=== PATIENT | male | born 1955 | race Caucasian/White ===

== ENCOUNTER 2017-10-29 09:27 | Observation (INO) ==
--- NOTE | 2017-10-29 11:25 | ECG ---
Date Performed: 10/29/2017 Time Performed: 09:44:32 PTAGE: 62 years EKG: Sinus rhythm POSSIBLE LEFT ATRIAL ENLARGEMENT INCOMPLETE RIGHT BUNDLE BRANCH BLOCK SEPTAL MYOCARDIAL INFARCTION A BNORMAL ECG NO PREVIOUS TRACING DOCTOR: Mario Alberto Chan Interpretating Date/Time 10/29/2017 11:24:05
--- NOTE | 2017-10-29 11:57 | ED ---
HPI General Chief Complaint: Chest Pain Stated Complaint: Chest Pain Time Seen by Provider: 10/29/17 11:46 History of Present Illness HPI narrative: Patient comes emergency department complaining of intermittent left-sided chest pain ongoing for 3 days. Patient states that he walks approximately 4 miles a day and does not have chest pain with walking, but seems to happen more at rest. Describes pain as feeling like someone kicking him just briefly and then goes away. Denies radiation of the pain. Patient states pain improves with drinking a couple of beers. Patient reports history of high blood pressure but has not been on medication for about a year and a half secondary to no insurance. Patient states he smokes approximately 8 cigarettes per day and drinks 8 beers per day. Denies ever having a stress test or cardiac cath. Denies any headaches, dizziness, change in vision, shortness of breath, abdominal pain, nausea, vomiting, loss change in bowel bladder, numbness or tingling anywhere, or weakness. Complete Quality Measures for STEMI Alert Patients Related Data Home Medications Medication Instructions Recorded Confirmed No Known Home Medications 10/29/17 10/29/17 Allergies Allergy/AdvReac Type Severity Reaction Status Date / Time amoxicillin [From Augmentin] Allergy Bleeding Verified 10/29/17 09:39 clavulanic acid Allergy Bleeding Verified 10/29/17 09:39 [From Augmentin] Review of Systems Except as stated in HPI: all other systems reviewed are negative PMFSH Medical History Medical History Hypertension (Acute) Surgical History Surgical History No history of previous surgery (Acute) Social History Social History Substance History: Active Abuse Second Hand Smoke Exposure: Yes Smoking Status: Current every day smoker Tobacco Type: Cigarettes How Often Do You Have a Drink Containing Alcohol: 4 or more times a week Recent Travel in [place] within the Last 8 Weeks: No Recent Out of Country Travel within the Last 8 Weeks: No Substance Abuse Detail Alcohol: Substance Use Status: Active Route Used Substance Abuse: By Mouth Substance Frequency: 8 beers daily Marijuana: Substance Use Status: Active Substance Frequency: every other day Reason for Use: Calm Down Immunization History Tetanus Immunization: >5 Years Hx Influenza Vaccine This Season: No Exam Narrative Exam Narrative: GENERAL: Well-developed, overly nourished, in no acute distress , and non-ill appearing. SKIN: Focused skin assessment warm and dry. HEAD: Atraumatic. Normocephalic. EYES: Pupils equal and round. EOMI. No scleral icterus. No injection or drainage. ENT: No nasal bleeding or discharge. Mucous membranes pink and moist. NECK: Trachea midline. No JVD. Supple. No nuclear rigidity. CARDIOVASCULAR: Regular rate and rhythm. No murmur appreciated. RESPIRATORY: No accessory muscle use. No respiratory distress. Clear to auscultation. Breath sounds equal bilaterally. MUSCULOSKELETAL: No obvious deformities. No clubbing. No cyanosis. No edema. Full range of motion. NEUROLOGICAL: Awake and alert. No obvious cranial nerve deficits. Motor grossly within normal limits. Normal speech. PSYCHIATRIC: Appropriate mood and affect; insight and judgment normal. Course Initial Documented Vital Signs Temperature 97.8 F 10/29/17 09:36 Pulse Rate 82 10/29/17 09:36 Respiratory Rate 16 10/29/17 09:36 Blood Pressure 206/100 H 10/29/17 09:36 Pulse Oximetry 98 10/29/17 09:36 Last Documented Vital Signs Temperature 97.8 F 10/29/17 09:36 Pulse Rate 78 10/29/17 14:42 Respiratory Rate 18 10/29/17 14:42 Blood Pressure 164/83 H 10/29/17 14:42 Pulse Oximetry 96 10/29/17 14:42 Medical Decision Making MDM Narrative Medical decision making narrative: Patient seen and examined. IV was established patient was placed on continuous cardiac monitoring. Patient was given aspirin and started on Nitropaste. Hydrated with IV fluid. Patient reassessed reports feeling better. Labs, chest x-ray and EKG reviewed. Discussed patient with Dr. Alexandre, is in agreement plan of care and disposition. Discussed all findings plan of care with patient is agreeable for admission to the chest pain center. All questions were answered. Patient remained stable throughout ED course. Differential Diagnosis Differential Diagnosis: Acute coronary syndrome, pneumonia, esophageal spasm, metabolic disturbance, GERD, pancreatitis Lab Data Result diagrams: 10/29/17 12:08 10/29/17 12:08 Lab Results 10/29/17 10/29/17 10/29/17 Range/Units 12:08 12:08 12:08 WBC 13.4 H (4.0-11.0) th/mm3 RBC 5.51 (4.50-5.90) mil/mm3 Hgb 18.2 H (13.0-17.0) gm/dL Hct 51.9 H (39.0-51.0) % MCV 94.1 (80.0-100.0) fL MCH 33.0 (27.0-34.0) pg MCHC 35.1 (32.0-36.0) % RDW 13.2 (11.6-17.2) % Plt Count 286 (150-450) th/mm3 MPV 7.4 (7.0-11.0) fL Neut % (Auto) 73.0 H (16.0-70.0) % Lymph % (Auto) 16.9 (9.0-44.0) % [place] % (Auto) 8.7 H (0.0-8.0) % Eos % (Auto) 1.1 (0.0-4.0) % Baso % (Auto) 0.3 (0.0-2.0) % Neut # (Auto) 9.8 H (1.8-7.7) th/mm3 Lymph # (Auto) 2.3 (1.0-4.8) th/mm3 [place] # (Auto) 1.2 H (0.0-0.9) th/mm3 Eos # (Auto) 0.1 (0.0-0.4) th/mm3 Baso # (Auto) 0.0 (0.0-0.2) th/mm3 WBC Differential . Differential Comment Auto diff final PT 10.7 (9.8-11.6) sec INR 1.1 Ratio APTT 29.0 (24.3-30.1) sec Sodium 132 L (136-145) meq/L Potassium 3.8 (3.5-5.1) meq/L Chloride 96 L (98-107) meq/L Carbon Dioxide 26.7 (21.0-32.0) meq/L Anion Gap 9 (5-15) meq/L BUN 9 (7-18) mg/dL Creatinine 0.82 (0.60-1.30) mg/dL Estimated GFR Greater than 89 (>89) mL/min Random Glucose 107 H (74-106) mg/dL Calcium 9.3 (8.5-10.1) mg/dL Magnesium 2.2 (1.5-2.5) mg/dL Total Creatine Kinase 83 (39-308) U/L Troponin I Less than 0.02 L (0.02-0.05) ng/mL Lipase (73-393) U/L 10/29/17 Range/Units 12:08 WBC (4.0-11.0) th/mm3 RBC (4.50-5.90) mil/mm3 Hgb (13.0-17.0) gm/dL Hct (39.0-51.0) % MCV (80.0-100.0) fL MCH (27.0-34.0) pg MCHC (32.0-36.0) % RDW (11.6-17.2) % Plt Count (150-450) th/mm3 MPV (7.0-11.0) fL Neut % (Auto) (16.0-70.0) % Lymph % (Auto) (9.0-44.0) % [place] % (Auto) (0.0-8.0) % Eos % (Auto) (0.0-4.0) % Baso % (Auto) (0.0-2.0) % Neut # (Auto) (1.8-7.7) th/mm3 Lymph # (Auto) (1.0-4.8) th/mm3 [place] # (Auto) (0.0-0.9) th/mm3 Eos # (Auto) (0.0-0.4) th/mm3 Baso # (Auto) (0.0-0.2) th/mm3 WBC Differential Differential Comment PT (9.8-11.6) sec INR Ratio APTT (24.3-30.1) sec Sodium (136-145) meq/L Potassium (3.5-5.1) meq/L Chloride (98-107) meq/L Carbon Dioxide (21.0-32.0) meq/L Anion Gap (5-15) meq/L BUN (7-18) mg/dL Creatinine (0.60-1.30) mg/dL Estimated GFR (>89) mL/min Random Glucose (74-106) mg/dL Calcium (8.5-10.1) mg/dL Magnesium (1.5-2.5) mg/dL Total Creatine Kinase (39-308) U/L Troponin I (0.02-0.05) ng/mL Lipase 86 (73-393) U/L Imaging Data Radiologist's impression: Chest X-Ray 10/29/17 11:52 CONCLUSION: No acute intrathoracic disease. ECG Data Interpretation: EKG reviewed by patient shows incomplete right bundle branch block. Ventricular rate of 70. No STEMI. Discharge Plan Discharge Disposition Patient Disposition: 30 Still Patient Discharge Details Diagnosis: Atypical chest pain Physicians Team ED Provider: Dandre Alexandre ED Midlevel Provider: Collin Choi Primary Care Provider: UNKNOWN, Attending Provider: Sabrina Kirkpatrick Discharge Interventions Interventions: Vital Signs Last Done: 10/29/17 11:52 Status ED Status: Admitted Observation Patient
[2017-10-29 12:19] LABS: Baso % (Auto) 0.3 % (0.0-2.0); Eos # (Auto) 0.1 th/mm3 (0.0-0.4); Eos % (Auto) 1.1 % (0.0-4.0); Hematocrit 51.9 % (39.0-51.0); Hemoglobin 18.2 gm/dL (13.0-17.0); Lymph # (Auto) 2.3 th/mm3 (1.0-4.8); Lymph % (Auto) 16.9 % (9.0-44.0); Mean Corpuscular HGB Conc 35.1 % (32.0-36.0); Mean Corpuscular Volume 94.1 fL (80.0-100.0); Mean Platelet Volume 7.4 fL (7.0-11.0); Mono # (Auto) 1.2 th/mm3 (0.0-0.9); Mono % (Auto) 8.7 % (0.0-8.0); Neut # (Auto) 9.8 th/mm3 (1.8-7.7); Platelet Count 286 th/mm3 (150-450); Red Blood Count 5.51 mil/mm3 (4.50-5.90); Red Cell Distribution Width 13.2 % (11.6-17.2); White Blood Count 13.4 th/mm3 (4.0-11.0)
[2017-10-29 12:31] LABS: INR 1.1 Ratio; Prothrombin Time 10.7 sec (9.8-11.6)
--- NOTE | 2017-10-29 12:46 | XR ---
EXAM DATE: 10/29/2017 12:43 PM EDT AGE/SEX: 62 years / Male INDICATIONS: Chest pain. CLINICAL DATA: This is the patient's initial encounter. Patient reports that signs and symptoms have been present for 3 days and indicates a pain score of 7/10. MEDICAL/SURGICAL HISTORY: . Smoker. None. COMPARISON: No prior exams available for comparison. FINDINGS: A single AP view of the chest demonstrates the lungs to be symmetrically aerated without evidence of mass, infiltrate or effusion. The cardiomediastinal contours are unremarkable. Osseous structures a re intact. CONCLUSION: No acute intrathoracic disease. Electronically signed by: Curry Christian MD 10/29/2017 12:45 PM EDT
[2017-10-29 12:54] LABS: Anion Gap 9 meq/L (5-15); Blood Urea Nitrogen 9 mg/dL (7-18); Calcium 9.3 mg/dL (8.5-10.1); Carbon Dioxide 26.7 meq/L (21.0-32.0); Chloride 96 meq/L (98-107); Glomerular Filtration Rate Greater Than 89 mL/min (>89); Glucose,Random 107 mg/dL (74-106); Potassium 3.8 meq/L (3.5-5.1); Sodium 132 meq/L (136-145)
[2017-10-29 12:55] LABS: Creatine Kinase 83 U/L (39-308); Magnesium 2.2 mg/dL (1.5-2.5)
[2017-10-29] MEDS ORDERED: Sod Chloride 0.9% Inj 1,000 ML IV.SIG ONE (13:02)
[2017-10-29] MEDS ORDERED: Acetaminophen 500 MG Tablet PO PRN (15:08)
--- NOTE | 2017-10-29 15:47 | P.HPCA ---
History of Present Illness Primary Care Physician: UNKNOWN Chief Complaint: Chest pain History of Present Illness: 62-year-old male current smoker and history of hypertension (currently not taking medication) presents to ER for further evaluation of chest pain. Onset x1 week. Location substernal. Characterized as getting punched, quick onset. No associated symptoms of nausea, vomiting, dyspnea, or diaphoresis. Duration seconds. No precipitating or relieving factors. He walks 4 miles daily, notices discomfort after walking. No current chest discomfort. No recent illness or fever. Endorses similar discomfort in the past, however not as severe and rarely occurs. This week experienced approx 4-5 episodes. Denies previous cardiac testing in the past. No known cardiac disease. Family history noncontributory for early onset cardiovascular disease. - Diagnosis (1) Atypical chest pain (2) Tobacco abuse (3) Alcohol abuse (4) Anxiety (5) Hypertension Review of Systems All other systems reviewed negative except as stated in HPI PMFSH - History History Provided By: Patient - Medical History Medical History: Medical History (Last Reviewed 10/29/17 @ 15:44 by ROBEL Abreu) Hypertension - Surgical History Surgical History: Surgical History (Last Reviewed 10/29/17 @ 15:44 by ROBEL Abreu) No history of previous surgery - Tobacco History Second Hand Smoke Exposure: Yes Tobacco Use In Past 30 Days: Yes Smoking Status: Current every day smoker Tobacco Type: Cigarettes Cigarettes Per Day: 8 - Alcohol History How Often Do You Have a Drink Containing Alcohol: 4 or more times a week (8 beers daily) - Substance Use History Substance History: Active Abuse - Substance Use Type Alcohol Status: Active Route Used: By Mouth Frequency: 8 beers daily Marijuana Status: Active Frequency: every other day Reason for Use: Calm Down - Travel History Recent Travel in the [place] Within the Last 8 Weeks: No Recent Travel Out of the Country Within the Last 8 Weeks: No - Immunization History Tetanus Immunization: >5 Years Hx Influenza Vaccine This Season: No Medications and Allergies Active Medications: Active Medications Acetaminophen (Tylenol) 500 mg PO Q4H PRN PRN Reason: HEADACHE Nitroglycerin (Nitrostat Sl) 0.4 mg SL Q5M PRN PRN Reason: CHEST PAIN Sodium Chloride (Ns Flush) 2 ml IV.FLUSH UNSCH PRN PRN Reason: FLUSH AFTER USING IV ACCESS Allergies Allergy/AdvReac Type Severity Reaction Status Date / Time amoxicillin [From Augmentin] Allergy Bleeding Verified 10/29/17 09:39 clavulanic acid Allergy Bleeding Verified 10/29/17 09:39 [From Augmentin] Home Medications Medication Instructions Recorded Confirmed Type No Known Home Medications 10/29/17 10/29/17 History Exam Vital signs: Vital Signs 10/29/17 09:36 10/29/17 11:52 10/29/17 11:58 Temperature 97.8 F Pulse Rate 82 69 70 Pulse Rate [Left Radial] 69 Respiratory Rate 16 18 18 Blood Pressure 206/100 H 192/91 H Blood Pressure [Left Arm] 206/95 H Blood Pressure [Right Arm] 191/89 H Pulse Oximetry 98 98 95 10/29/17 13:42 10/29/17 14:42 Temperature Pulse Rate 88 78 Pulse Rate [Left Radial] Respiratory Rate 18 18 Blood Pressure 175/87 H 164/83 H Blood Pressure [Left Arm] Blood Pressure [Right Arm] Pulse Oximetry 96 96 Intake & Output 10/28/17 10/29/17 10/29/17 18:59 06:59 18:59 Intake Total 1000 / 1000 Balance 1000 / 1000 Weight 77.111 kg Intake: IV 1000 / 1000 NS Inj 1,000 ML @ Wide Open IV. 1000 / 1000 SIG BOLUS ONE Rx#:[id number] Narrative: male mildly anxious in no acute distress - Constitutional no acute distress, cooperative - Routine HEENT Exam Head: Present: normocephalic, atraumatic ENT: Present: mucous membranes moist - Routine Neck Exam Present: supple, full ROM. Absent: JVD, carotid bruit - Routine Chest/Breast/Axilla Exam Chest wall: Absent: tenderness - Routine Respiratory Exam Present: CTA bilaterally. Absent: rhonchi, wheezes, crackles - Routine Cardiovascular Exam Present: RRR. Absent: murmur, gallop, rubs - Routine Abdominal Exam Present: soft, normoactive bowel sounds. Absent: tenderness, distended - Routine Extremities Exam Present: full ROM, pulses intact, normal capillary refill. Absent: edema, calf tenderness - Routine Skin Exam Present: intact, warm - Routine Neurological Exam Present: alert, oriented X3, CN II-XII intact - Routine Psychiatric Exam Present: normal affect, normal thought process, cooperative, good insight, good judgment, anxious. Absent: suicidal ideation Results 10/29/17 12:08 10/29/17 12:08 Cardiac Enzymes 10/29/17 Range/Units 12:08 Troponin I Less than 0.02 L (0.02-0.05) ng/mL Coagulation 10/29/17 Range/Units 12:08 PT 10.7 (9.8-11.6) sec APTT 29.0 (24.3-30.1) sec CBC 10/29/17 Range/Units 12:08 WBC 13.4 H (4.0-11.0) th/mm3 RBC 5.51 (4.50-5.90) mil/mm3 Hgb 18.2 H (13.0-17.0) gm/dL Hct 51.9 H (39.0-51.0) % Plt Count 286 (150-450) th/mm3 Neut # (Auto) 9.8 H (1.8-7.7) th/mm3 Lymph # (Auto) 2.3 (1.0-4.8) th/mm3 [place] # (Auto) 1.2 H (0.0-0.9) th/mm3 Eos # (Auto) 0.1 (0.0-0.4) th/mm3 Baso # (Auto) 0.0 (0.0-0.2) th/mm3 Comprehensive Metabolic Panel 10/29/17 Range/Units 12:08 Sodium 132 L (136-145) meq/L Potassium 3.8 (3.5-5.1) meq/L Chloride 96 L (98-107) meq/L Carbon Dioxide 26.7 (21.0-32.0) meq/L BUN 9 (7-18) mg/dL Creatinine 0.82 (0.60-1.30) mg/dL Calcium 9.3 (8.5-10.1) mg/dL Intake and Output 10/29/17 10/29/17 10/29/17 06:59 14:59 22:59 Intake Total 1000 / 1000 Balance 1000 / 1000 Intake: IV 1000 / 1000 NS Inj 1,000 ML @ Wide Open IV. 1000 / 1000 SIG BOLUS ONE Rx#:[id number] Other: Weight 77.111 kg Patient Weight 10/30/17 06:59 Weight 77.111 kg EKG interpretations - EKG EKG results cardiology: WNL, sinus rhythm, normal axis, normal QRS, normal ST/T (NSR, no st t segment changes, Q waves V1-V2) Caprini VTE Risk Assessment Caprini VTE Risk Assessment: Moderate/High Risk (score >= 2) Caprini Risk Assessment Model: Point Value = 1 Point Value = 2 Point Value = 3 Point Value = 5 Age 41-60 Minor surgery BMI > 25 kg/m2 Swollen legs Varicose veins or History of unexplained or recurrent spontaneous Oral contraceptives or hormone replacement Sepsis (< 1 month) Serious lung disease, including pneumonia (< 1 month) Abnormal pulmonary function Acute myocardial infarction Congestive heart failure (< 1 month) History of inflammatory bowel disease Medical patient at bed rest Age 61-74 Arthroscopic surgery Major open surgery (> 45 min) Laparoscopic surgery (> 45 min) Malignancy Confined to bed (> 72 hours) Immobilizing plaster cast Central venous access Age >= 75 History of VTE Family history of VTE Factor V Leiden Prothrombin [id number] Lupus anticoagulant Anticardiolipin antibodies Elevated serum homocysteine Heparin-induced thrombocytopenia Other congenital or acquired thrombophilia Stroke (< 1 month) Elective arthroplasty Hip, pelvis, or leg fracture Acute spinal cord injury (< 1 month) Prophylaxis Regimen: Total Risk Factor Score Risk Level Prophylaxis Regimen 0-1 Low Early ambulation 2 Moderate Order ONE of the following: *Sequential Compression Device (SCD) *Heparin 5000 units SQ BID 3-4 Higher Order ONE of the following medications: *Heparin 5000 units SQ TID *Enoxaparin/Lovenox 40 mg SQ daily (WT < 150 kg, CrCl > 30 mL/min) *Enoxaparin/Lovenox 30 mg SQ daily (WT < 150 kg, CrCl > 10-29 mL/min) *Enoxaparin/Lovenox 30 mg SQ BID (WT < 150 kg, CrCl > 30 mL/min) AND/OR *Sequential Compression Device (SCD) 5 or more Highest Order ONE of the following medications: *Heparin 5000 units SQ TID (Preferred with Epidurals) *Enoxaparin/Lovenox 40 mg SQ daily (WT < 150 kg, CrCl > 30 mL/min) *Enoxaparin/Lovenox 30 mg SQ daily (WT < 150 kg, CrCl > 10-29 mL/min) *Enoxaparin/Lovenox 30 mg SQ BID (WT < 150 kg, CrCl > 30 mL/min) AND *Sequential Compression Device (SCD) Assessment and Plan - Assessment (1) Atypical chest pain Code(s): R07.89 - Other chest pain Status: Acute Plan: Admitted to chest pain center. Continue ACS protocol initiated in ER. Will be seen evaluated by Dr. Sabrina Kirkpatrick. Discussed likely will proceed with exercise cardiac testing. Agreeable to plan of care. If cardiac testing unremarkable, plans to discharge home with follow up with PCP. (2) Tobacco abuse Code(s): Z72.0 - Tobacco use Status: Chronic Plan: Strongly encouraged and stressed the importance of tobacco cessation. Instructed to quit smoking. (3) Alcohol abuse Code(s): F10.10 - Alcohol abuse, uncomplicated Status: Chronic Plan: Encouraged alcohol cessation, consider counseling. (4) Anxiety Code(s): F41.9 - Anxiety disorder, unspecified Status: Chronic Plan: Continue daily exercise. Encouraged establishing with a PCP. (5) Hypertension Code(s): I10 - Essential (primary) hypertension Status: Chronic Plan: Amlodipine 5 mg PO x1 dose now. Continue to monitor. Instructed to establish with a primary care provider. Prescription for amlodipine will be provided upon discharge. Smoking cessation and adhering with a low-sodium diet encouraged. (5) Hypertension Qualifiers: Hypertension type: unspecified Qualified Code(s): I10 - Essential (primary) hypertension
[2017-10-29] MEDS ORDERED: Haloperidol Inj 5 MG/ML Ampul IV.PUSH PRN (15:48)
[2017-10-29] MEDS ORDERED: LORazepam 1 MG Tablet PO PRN (15:48)
[2017-10-29] MEDS ORDERED: amLODIPine 5 MG Tablet PO ONE (16:00)
[2017-10-29 16:59] LABS: Creatine Kinase 81 U/L (39-308)
--- NOTE | 2017-10-30 16:01 | TR ---
Date Performed: 10/29/2017 Time Performed: 17:36:52 DOCTOR: Gianluca Clayton DRUG LIST: CLINICAL HISTORY: REASON FOR TEST: Chest pain REASON FOR ENDING: OBSERVATION: CONCLUSION: Royer protocol completed. Test stopped sec to exceeding target heart rate and leg fa tigue. Maximum AR=981 Target HR Iocihytb=467.0% Maximum RX=495/118 Total Exercise Time=7:02. No repro d chest discomfort. Infrequent PVC. Patient reports feeling PVCs. Hypertensive response. Good exercis e tolerance. No st t segment changes. Recovery quick and unremarkable. COMMENTS: Conclusion: Normal treadmill exercise. No evidence of ischemia.
--- NOTE | 2017-10-30 16:38 | ECG ---
Date Performed: 10/29/2017 Time Performed: 16:22:18 PTAGE: 62 years EKG: Sinus rhythm INCOMPLETE RIGHT BUNDLE BRANCH BLOCK ABNORMAL ECG PREVIOUS TRACING : 10/29/2017 09.44 Since previous tracing, no significant change noted DOCTOR: Gianluca Clayton Interpretating Date/Time 10/30/2017 16:36:12
== END 2017-10-29 18:34 | disposition home or self-care (01) ==
LOC: NEPC 09:27 → NEDA 09:27 → NEPHCDU 09:27
PROVIDERS: ADMIT Internal Medicine Interventional Cardiology; ATTEND Internal Medicine Interventional Cardiology